=== PATIENT | female | born 1960 ===

== ENCOUNTER 2021-03-04 14:29 | Inpatient (IN) | payer MEDICAID ==
[2021-03-05] MEDS: HYDROcodone/ACETAMINOPHEN 10-325MG TAB PO PRN ×2 (01:55→11:08)
[2021-03-05 06:32] LABS: Basophils % (Auto) 0.6 % (0.0-1.8); Eosinophils # (Auto) 0.1 K/mm3 (0.0-0.4); Eosinophils % (Auto) 0.8 % (0.0-4.3); Hematocrit 41.3 % (30.3-42.9); Lymphocytes # (Auto) 2.5 K/mm3 (1.2-5.4); Lymphocytes % (Auto) 37.6 % (13.4-35.0); Mean Corpuscular HGB Conc 34 % (30-34); Mean Corpuscular Volume 97 fl (79-97); Monocytes # (Auto) 0.4 K/mm3 (0.0-0.8); Monocytes % (Auto) 6.4 % (0.0-7.3); Platelet Count 188 K/mm3 (140-440); Red Blood Count 4.27 M/mm3 (3.65-5.03); Red Cell Distribution Width 13.8 % (13.2-15.2)
[2021-03-05 06:40] LABS: Alanine Aminotransferase 9 units/L (7-56); Albumin 3.8 g/dL (3.9-5); Blood Urea Nitrogen 10 mg/dL (7-17); Calcium 9.6 mg/dL (8.4-10.2); Chol/HDL Ratio 3.35 %; HDL Cholesterol 51 mg/dL (40-59); Hemolysis Index 5; LDL Cholesterol,Direct 106 mg/dL (50-130)
[2021-03-05 06:44] LABS: BUN/Creatinine Ratio 14
[2021-03-05] MEDS ORDERED: NITROFURANTOIN MONOHYD/M-CRYST 100 MG CAP PO SCH (10:00)
[2021-03-05] MEDS ORDERED: NON-FORMULARY EACH (Lisinopril [Zestril Tab] 2.5 MG Tablet) PO SCH (10:00)
[2021-03-05] MEDS: NITROFURANTOIN MONOHYD/M-CRYST 100 MG CAP PO SCH ×2 (10:05→21:10)
[2021-03-05] MEDS: NICOTINE 21 MG/24 HR PATCH TD SCH (10:06)
[2021-03-05] MEDS: LISINOPRIL 5 MG TAB PO SCH (10:06)
[2021-03-05] MEDS: METOPROLOL SUCCINATE XL 50 MG TAB PO SCH (10:07)
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
[2021-03-05] MEDS ORDERED: ALBUTEROL 8.5 GM MDI INHALATION IH PRN (10:37)
[2021-03-05] MEDS ORDERED: NON-FORMULARY EACH (Fluoxetine Hcl [Prozac] 40 MG Capsule) PO SCH (10:45)
[2021-03-05] MEDS: CETIRIZINE 10 MG TAB PO SCH (11:11)
[2021-03-05] MEDS ORDERED: ALBUTEROL 2.5 MG/3 ML NEBU IH PRN (11:17)
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
[2021-03-05] MEDS: FLUoxetine 20 MG CAP PO SCH (12:54)
[2021-03-05] MEDS: PRAMIPEXOLE 0.125 MG TAB PO SCH ×2 (13:20→21:09)
[2021-03-05] MEDS ORDERED: PRAMIPEXOLE 0.25 MG PO SCH (14:00)
[2021-03-05] MEDS: AMITRIPTYLINE 25 MG TAB PO SCH (21:10)
[2021-03-05] MEDS ORDERED: NON-FORMULARY EACH (Rosuvastatin Calcium [Crestor] 20 MG Tablet) PO SCH (22:00)
[2021-03-06] MEDS: NITROFURANTOIN MONOHYD/M-CRYST 100 MG CAP PO SCH ×2 (09:03→21:02)
[2021-03-06] MEDS: CETIRIZINE 10 MG TAB PO SCH (09:03)
[2021-03-06] MEDS: METOPROLOL SUCCINATE XL 50 MG TAB PO SCH (09:03)
[2021-03-06] MEDS: LISINOPRIL 5 MG TAB PO SCH (09:03)
[2021-03-06] MEDS: FLUoxetine 20 MG CAP PO SCH (09:03)
[2021-03-06] MEDS: NICOTINE 21 MG/24 HR PATCH TD SCH (09:04)
[2021-03-06] MEDS: PRAMIPEXOLE 0.125 MG TAB PO SCH ×3 (09:04→21:02)
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
[2021-03-06] MEDS: AMITRIPTYLINE 25 MG TAB PO SCH (21:02)
[2021-03-07] MEDS: HYDROcodone/ACETAMINOPHEN 10-325MG TAB PO PRN ×2 (05:32→20:58)
[2021-03-07] MEDS: METOPROLOL SUCCINATE XL 50 MG TAB PO SCH (09:00)
[2021-03-07] MEDS: NICOTINE 21 MG/24 HR PATCH TD SCH (09:00)
[2021-03-07] MEDS: LISINOPRIL 5 MG TAB PO SCH (09:00)
[2021-03-07] MEDS: FLUoxetine 20 MG CAP PO SCH (09:00)
[2021-03-07] MEDS: CETIRIZINE 10 MG TAB PO SCH (09:00)
[2021-03-07] MEDS: NITROFURANTOIN MONOHYD/M-CRYST 100 MG CAP PO SCH ×2 (09:01→21:04)
[2021-03-07] MEDS: PRAMIPEXOLE 0.125 MG TAB PO SCH ×3 (09:10→20:50)
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
[2021-03-07] MEDS ORDERED: DEXTROSE 50% IN WATER (25GM) 50 ML SYRINGE IV ONE (12:03)
[2021-03-07] MEDS: AMITRIPTYLINE 25 MG TAB PO SCH (21:04)
[2021-03-08] MEDS: METOPROLOL SUCCINATE XL 50 MG TAB PO SCH (09:12)
[2021-03-08] MEDS: PRAMIPEXOLE 0.125 MG TAB PO SCH ×3 (09:13→20:02)
[2021-03-08] MEDS: FLUoxetine 20 MG CAP PO SCH (09:13)
[2021-03-08] MEDS: CETIRIZINE 10 MG TAB PO SCH (09:14)
[2021-03-08] MEDS: NITROFURANTOIN MONOHYD/M-CRYST 100 MG CAP PO SCH ×2 (09:14→21:28)
[2021-03-08] MEDS: LISINOPRIL 5 MG TAB PO SCH (09:14)
[2021-03-08] MEDS: NICOTINE 21 MG/24 HR PATCH TD SCH (09:14)
--- NOTE | 2021-03-08 09:33 | Progress Note ---
Subjective Date of service: 03/08/21 Principal diagnosis: MDD Subjective Comment: The patient was seen today. She is a/o x 3. She is calm and cooperative. The patient says she feels "pretty good." She denies SI/HI or hallucinations. She says "I'm doing a lot better, I feel." Reason for continued inpatient treatment: The patient will discharge tomorrow once outpatient resources are put in place by the . REVIEW OF SYSTEMS Constitutional: Negative for weight loss ENT: Negative for stridor Respiratory: Negative for cough or hemoptysis All other systems reviewed and are negative MENTAL STATUS EXAMINATION General Appearance and Behavior: Age appropriate, good hygiene, wearing appropriate clothes. Cooperation: Cooperative Psychomotor Behavior: Psychomotor normal Mood: "OK' Affect and affective range: congruent with stated mood Thought Process: Confused/ circumstantial Thought Content: Denies Speech: Normal volume, Regular rate and rhythm, Suicidal Ideation: Denies Homicidal Ideation: Denies Hallucinations: Denies Delusions: None elicited Impulse Control: Questionable Insight and Judgment: Limited Memory: Limited Attention: Distractible Orientation: alert and oriented Assessment and Plan (1)Major Depressive Disorder Current Visit: Yes Status: Acute Treatment Plan Patient admitted for inpatient psychiatric evaluation, medication adjustment and close monitoring The patient's behavior, mood, sleep and appetite will be closely monitored. Patient enrolled in individual and group therapeutic sessions and encouraged to attend. Patient provided with a safe and structured environment. Patient's physical health needs will be addressed by the Hospitalist. Hospital ist Consulted Labs including CBC, CMP, Lipid profile and Hemoglobin A1C levels ordered for baseline reference Social Assessment will be completed and the Fnps will work with patient and family to ensure a suitable and safe disposition Medication adjustment will be made as clinically indicated Continue home medications Usual Wellness Worship/Preservation: - Start Trazodone 50 mg po QHS & 50 mg po QHS PRN between 10 PM & 2 AM for insomnia - Start Melatonin 5 mg po QHS to promote circadian rhythm The patient agreed on the treatment plan, understood the risk, benefit, alternative treatment, potential consequence of no treatment, and gave informed consent. Estimated days: 6 Post hospital care: primary care provider, psychiatric provider Case staffed with Dr. Griffin Medications and Allergies Allergies Allergy/AdvReac Type Severity Reaction Status Date / Time No Known Allergies Allergy Unverified 03/04/21 19:21 Home Medications Medication Instructions Recorded Confirmed Last Taken Type Albuterol Mdi (or & Nicu Only) 1 puff IH Q6HR PRN 03/05/21 03/05/21 Unknown History [ProAir HFA Inhaler] Amitriptyline [Elavil] 25 mg PO HS 03/05/21 03/05/21 Unknown History Cetirizine HCl [Zyrtec 10mg tab] 10 mg PO DAILY 03/05/21 03/05/21 Unknown History FLUoxetine HCL [PROzac] 40 mg PO DAILY 03/05/21 03/05/21 Unknown History Lisinopril [Zestril TAB] 2.5 mg PO DAILY 03/05/21 03/05/21 Unknown History Metoprolol Xl [Metoprolol 50 mg PO DAILY 03/05/21 03/05/21 Unknown History SUCCINATE ER TAB] Nitrofurantoin [place]/M-Cryst 100 mg PO BID 03/05/21 03/05/21 Unknown History [Macrobid CAP] Pramipexole [Mirapex] 0.25 mg PO TID 03/05/21 03/05/21 Unknown History Rosuvastatin Calcium [Crestor] 20 mg PO HS 03/05/21 03/05/21 Unknown History methOCARBAMOL [Robaxin TAB] 1 tab PO Q8HR PRN 03/05/21 03/05/21 Unknown History Active Meds: Active Medications Hydrocodone Bitart/Acetaminophen (Hydrocodone/Acetaminophen 10-325mg Tab) 1 each PO Q8H PRN PRN Reason: Pain, Moderate (4-6) Last Admin: 03/07/21 20:58 Dose: 1 each Documented by: Albuterol (Albuterol 2.5 Mg/3 Ml Nebu) 2.5 mg IH Q6HRT PRN PRN Reason: Dyspnea Amitriptyline HCl (Amitriptyline 25 Mg Tab) 25 mg PO [facility] Last Admin: 03/07/21 21:04 Dose: 25 mg Documented by: Atorvastatin Calcium (Atorvastatin 40 Mg Tab) 40 mg PO QHS [facility] Last Admin: 03/07/21 21:04 Dose: 40 mg Documented by: Cetirizine HCl (Cetirizine 10 Mg Tab) 10 mg PO DAILY [facility] Last Admin: 03/08/21 09:14 Dose: 10 mg Documented by: Fluoxetine HCl (Fluoxetine 20 Mg Cap) 40 mg PO QDAY [facility] Last Admin: 03/08/21 09:13 Dose: 40 mg Documented by: Lisinopril (Lisinopril 5 Mg Tab) 2.5 mg PO QDAY [facility] Last Admin: 03/08/21 09:14 Dose: 2.5 mg Documented by: Methocarbamol (Methocarbamol 750 Mg Tab) 750 mg PO Q8H PRN PRN Reason: Muscle Spasm Last Admin: 03/08/21 09:14 Dose: 750 mg Documented by: Metoprolol Succinate (Metoprolol Succinate Xl 50 Mg Tab) 50 mg PO DAILY [facility] Last Admin: 03/08/21 09:12 Dose: 50 mg Documented by: Nicotine (Nicotine 21 Mg/24 Hr Patch) 21 mg TD QDAY [facility] Last Admin: 03/08/21 09:14 Dose: 21 mg Documented by: Nitrofurantoin Macrocrystals (Nitrofurantoin Monohyd/M-Cryst 100 Mg Cap) 100 mg PO BID [facility] Stop: 03/11/21 22:01 Last Admin: 03/08/21 09:14 Dose: 100 mg Documented by: Pramipexole Dihydrochloride (Pramipexole 0.125 Mg Tab) 0.25 mg PO TID [facility] Last Admin: 03/08/21 09:13 Dose: 0.25 mg Documented by: Results - Results Labs/Vitals: Laboratory Last Values WBC 6.7 K/mm3 (4.5-11.0) 03/05/21 05:59 RBC 4.27 M/mm3 (3.65-5.03) 03/05/21 05:59 Hgb 14.0 gm/dl (10.1-14.3) 03/05/21 05:59 Hct 41.3 % (30.3-42.9) 03/05/21 05:59 MCV 97 fl (79-97) 03/05/21 05:59 MCH 33 pg (28-32) H 03/05/21 05:59 MCHC 34 % (30-34) 03/05/21 05:59 RDW 13.8 % (13.2-15.2) 03/05/21 05:59 Plt Count 188 K/mm3 (140-440) 03/05/21 05:59 Lymph % (Auto) 37.6 % (13.4-35.0) H 03/05/21 05:59 [place] % (Auto) 6.4 % (0.0-7.3) 03/05/21 05:59 Eos % (Auto) 0.8 % (0.0-4.3) 03/05/21 05:59 Baso % (Auto) 0.6 % (0.0-1.8) 03/05/21 05:59 Lymph # (Auto) 2.5 K/mm3 (1.2-5.4) 03/05/21 05:59 [place] # (Auto) 0.4 K/mm3 (0.0-0.8) 03/05/21 05:59 Eos # (Auto) 0.1 K/mm3 (0.0-0.4) 03/05/21 05:59 Baso # (Auto) 0.0 K/mm3 (0.0-0.1) 03/05/21 05:59 Seg Neutrophils % 54.6 % (40.0-70.0) 03/05/21 05:59 Seg Neutrophils # 3.7 K/mm3 (1.8-7.7) 03/05/21 05:59 Sodium 138 mmol/L (137-145) 03/05/21 05:59 Potassium 3.7 mmol/L (3.6-5.0) 03/05/21 05:59 Chloride 103.5 mmol/L (98-107) 03/05/21 05:59 Carbon Dioxide 26 mmol/L (22-30) 03/05/21 05:59 Anion Gap 12 mmol/L 03/05/21 05:59 BUN 10 mg/dL (7-17) 03/05/21 05:59 Creatinine 0.7 mg/dL (0.6-1.2) 03/05/21 05:59 Estimated GFR > 60 ml/min 03/05/21 05:59 BUN/Creatinine Ratio 14 % 03/05/21 05:59 Glucose 103 mg/dL (65-100) H 03/05/21 05:59 POC Glucose 136 mg/dL (70-105) H 03/05/21 01:35 Hemoglobin A1c 5.2 % (4-6) 03/05/21 05:59 Calcium 9.6 mg/dL (8.4-10.2) 03/05/21 05:59 Total Bilirubin 0.50 mg/dL (0.1-1.2) 03/05/21 05:59 AST 20 units/L (5-40) 03/05/21 05:59 ALT 9 units/L (7-56) 03/05/21 05:59 Alkaline Phosphatase 76 units/L (35-129) 03/05/21 05:59 Total Protein 6.7 g/dL (6.3-8.2) 03/05/21 05:59 Albumin 3.8 g/dL (3.9-5) L 03/05/21 05:59 Albumin/Globulin Ratio 1.3 % 03/05/21 05:59 Triglycerides 142 mg/dL (2-149) 03/05/21 05:59 Cholesterol 171 mg/dL (50-199) 03/05/21 05:59 LDL Cholesterol Direct 106 mg/dL (50-130) 03/05/21 05:59 HDL Cholesterol 51 mg/dL (40-59) 03/05/21 05:59 Cholesterol/HDL Ratio 3.35 % 03/05/21 05:59 TSH 3.670 mlU/mL (0.270-4.200) 03/05/21 05:59 Last Vital Signs Temp 98.4 F 03/08/21 07:19 Pulse 58 L 03/08/21 09:14 Resp 16 03/08/21 07:19 BP 141/71 03/08/21 09:14 Pulse Ox 98 03/08/21 07:19
[2021-03-08] MEDS: HYDROcodone/ACETAMINOPHEN 10-325MG TAB PO PRN ×2 (10:40→20:03)
[2021-03-08] MEDS: AMITRIPTYLINE 25 MG TAB PO SCH (21:28)
--- NOTE | 2021-03-09 07:54 | Discharge Summary ---
Providers - Providers Date of Admission: 03/05/21 01:24 Date of discharge: 03/09/21 Attending physician: REDD RICHARDSON MD Primary care physician: [facility] Hospitalization Reason for admission: Suicidal Ideation Admitting Diagnosis: F33.9 - MAJOR DEPRESSIVE DISORDER, RECURRENT, UNSPECIFIED Condition: Stable Hospital course: The patient was provided inpatient psychiatric treatment with safe and supportive environment, group/individual therapy, psychiatric medication, medication adjustment, adverse effect monitor, medical evaluation, medical treatment, social service assessment, social support meeting, placement assessment and psycho-education. The patients mood, cognition, behavior, motivation, compliance to treatment and appreciation on family/social support are improved and stabilized. At the time of discharge, the patient had no suicidal ideas, no homicidal ideas, no aggressive thoughts, no endangering behavior and no debilitating adverse effects. The patient agreed on the treatment plan, understood the risk, benefit, alternative treatment, potential consequence of no treatment, and gave informed consent. Progress Note: 03/06/2021: The patient was seen today. She is a/o x 3. She is calm and cooperative. The patient denies SI/HI. She says "I was just upset." She denies hallucinations. 03/07/2021: The patient was seen today. She is a/o x 3. She is calm and cooperative. The patient denies SI/HI. She denies hallucinations. Although, the nursing staff states the patient verbalized auditory hallucinations yesterday. 03/08/2021: The patient was seen today. She is a/o x 3. She is calm and cooperative. The patient says she feels "pretty good." She denies SI/HI or hallucinations. She says "I'm doing a lot better, I feel." Disposition: 01 HOME / SELF CARE / HOMELESS Allergies/Adverse Reactions: Allergies No Known Allergies Allergy (Unverified 03/04/21 19:21) Vital Signs: Last Vital Signs Temp 97.5 F L 03/08/21 19:10 Pulse 56 L 03/08/21 19:10 Resp 18 03/08/21 19:10 BP 128/57 03/08/21 19:10 Pulse Ox 99 03/08/21 19:10 Last Lab: Laboratory Last Values WBC 6.7 K/mm3 (4.5-11.0) 03/05/21 05:59 RBC 4.27 M/mm3 (3.65-5.03) 03/05/21 05:59 Hgb 14.0 gm/dl (10.1-14.3) 03/05/21 05:59 Hct 41.3 % (30.3-42.9) 03/05/21 05:59 MCV 97 fl (79-97) 03/05/21 05:59 MCH 33 pg (28-32) H 03/05/21 05:59 MCHC 34 % (30-34) 03/05/21 05:59 RDW 13.8 % (13.2-15.2) 03/05/21 05:59 Plt Count 188 K/mm3 (140-440) 03/05/21 05:59 Lymph % (Auto) 37.6 % (13.4-35.0) H 03/05/21 05:59 [place] % (Auto) 6.4 % (0.0-7.3) 03/05/21 05:59 Eos % (Auto) 0.8 % (0.0-4.3) 03/05/21 05:59 Baso % (Auto) 0.6 % (0.0-1.8) 03/05/21 05:59 Lymph # (Auto) 2.5 K/mm3 (1.2-5.4) 03/05/21 05:59 [place] # (Auto) 0.4 K/mm3 (0.0-0.8) 03/05/21 05:59 Eos # (Auto) 0.1 K/mm3 (0.0-0.4) 03/05/21 05:59 Baso # (Auto) 0.0 K/mm3 (0.0-0.1) 03/05/21 05:59 Seg Neutrophils % 54.6 % (40.0-70.0) 03/05/21 05:59 Seg Neutrophils # 3.7 K/mm3 (1.8-7.7) 03/05/21 05:59 Sodium 138 mmol/L (137-145) 03/05/21 05:59 Potassium 3.7 mmol/L (3.6-5.0) 03/05/21 05:59 Chloride 103.5 mmol/L (98-107) 03/05/21 05:59 Carbon Dioxide 26 mmol/L (22-30) 03/05/21 05:59 Anion Gap 12 mmol/L 03/05/21 05:59 BUN 10 mg/dL (7-17) 03/05/21 05:59 Creatinine 0.7 mg/dL (0.6-1.2) 03/05/21 05:59 Estimated GFR > 60 ml/min 03/05/21 05:59 BUN/Creatinine Ratio 14 % 03/05/21 05:59 Glucose 103 mg/dL (65-100) H 03/05/21 05:59 POC Glucose 136 mg/dL (70-105) H 03/05/21 01:35 Hemoglobin A1c 5.2 % (4-6) 03/05/21 05:59 Calcium 9.6 mg/dL (8.4-10.2) 03/05/21 05:59 Total Bilirubin 0.50 mg/dL (0.1-1.2) 03/05/21 05:59 AST 20 units/L (5-40) 03/05/21 05:59 ALT 9 units/L (7-56) 03/05/21 05:59 Alkaline Phosphatase 76 units/L (35-129) 03/05/21 05:59 Total Protein 6.7 g/dL (6.3-8.2) 03/05/21 05:59 Albumin 3.8 g/dL (3.9-5) L 03/05/21 05:59 Albumin/Globulin Ratio 1.3 % 03/05/21 05:59 Triglycerides 142 mg/dL (2-149) 03/05/21 05:59 Cholesterol 171 mg/dL (50-199) 03/05/21 05:59 LDL Cholesterol Direct 106 mg/dL (50-130) 03/05/21 05:59 HDL Cholesterol 51 mg/dL (40-59) 03/05/21 05:59 Cholesterol/HDL Ratio 3.35 % 03/05/21 05:59 TSH 3.670 mlU/mL (0.270-4.200) 03/05/21 05:59 Core Measure Documentation - Palliative Care Palliative Care/ Comfort Measures: Not Applicable - Core Measures Any of the following diagnoses?: none Exam - Constitutional Vitals: Temp Pulse Resp BP Pulse Ox 97.5 F L 56 L 18 128/57 99 03/08/21 19:10 09/02/21 19:10 03/08/21 19:10 03/08/21 19:10 03/08/21 19:10 Plan Activity: advance as tolerated Weight Bearing Status: Weight Bear as Tolerated Diet: regular Care Plan Goals: Maintain good and stable mental health. Plan of Treatment: The patient should be compliant with medications, not to use drugs and not to drink alcohol.The patient understands that if suicidal ideas, homicidal ideas, or any endangering thoughts arise, the patient should immediately seek for emergent assistance including but not limited to crisis hot line and emergency room. Follow up with outpatient Psychiatrist and PCP within 7 - 14 days of discharge. Follow up with: PRIMARY CARE, [Primary Care Provider] - 7 Days Prescriptions: Amitriptyline [Elavil] 25 mg PO QHS 30 Days #30 tab FLUoxetine HCL [PROzac] 40 mg PO QDAY 30 Days #30 capsule
[2021-03-09 09:44] VITALS: BP 135/65
[2021-03-09] MEDS: PRAMIPEXOLE 0.125 MG TAB PO SCH (09:45)
[2021-03-09] MEDS: CETIRIZINE 10 MG TAB PO SCH (09:46)
[2021-03-09] MEDS: FLUoxetine 20 MG CAP PO SCH (09:46)
[2021-03-09] MEDS: NITROFURANTOIN MONOHYD/M-CRYST 100 MG CAP PO SCH (09:46)
[2021-03-09] MEDS: LISINOPRIL 5 MG TAB PO SCH (09:47)
[2021-03-09] MEDS: METOPROLOL SUCCINATE XL 50 MG TAB PO SCH (09:48)
[2021-03-09] MEDS: NICOTINE 21 MG/24 HR PATCH TD SCH (09:49)
== END 2021-03-09 12:30 | disposition home or self-care (01) | DRG 885 ==
LOC: UNDOADMIN 14:29 → 5A 14:29
PROVIDERS: ADMIT Psychiatry & Neurology Psychiatry; ATTEND Psychiatry & Neurology Psychiatry
DX: F33.9 Major depressive disorder, recurrent, unspecified (principal); N39.0 Urinary tract infection, site not specified; M19.90 Unspecified osteoarthritis, unspecified site; K21.9 Gastro-esophageal reflux disease without esophagitis; E78.5 Hyperlipidemia, unspecified; I10 Essential (primary) hypertension; G43.909 Migraine, unspecified, not intractable, without status migrainosus; G47.30 Sleep apnea, unspecified; Z79.899 Other long term (current) drug therapy; Z85.841 Personal history of malignant neoplasm of brain
CPT/HCPCS: 36415; 80053; 80061; 82962; 83036; 84443; 85025; G0378